=== PATIENT | female | born 1985 | race African-American/Black ===

== ENCOUNTER 2018-08-26 21:09 | Emergency (ER) | payer SELFPAY ==
[~2018-08-26] VITALS: Ht 170.2 cm; Wt 84.0 kg
[2018-08-27] MEDS ORDERED: BACITRACIN ZINC OINT UDPKT TOP ONE (00:30)
[2018-08-27] MEDS ORDERED: KETOROLAC 60MG/2ML VIAL IM ONE (00:30)
[2018-08-27] MEDS ORDERED: TETANUS, DIPHTHERIA, PERTUSSIS VAC/PF 0.5ML (>7YR OLD) IM ONE (00:30)
[2018-08-27 01:10] LABS: CLARITY URINE CLOUDY (CLEAR); COLOR URINE YELLOW (YELLOW); KETONES URINE TRACE (NEGATIVE); LEUKOCYTE ESTERASE URINE 1+ (NEGATIVE); NITRITE URINE POSITIVE (NEGATIVE); OCCULT BLOOD URINE 1+ (NEGATIVE); PH URINE 8.5 (4.5-8.0); PROTEIN URINE NEGATIVE (NEGATIVE); SPECIFIC GRAVITY URINE 1.025 (1.005-1.030)
[2018-08-27 01:54] VITALS: BP 128/67
== END 2018-08-27 01:55 | disposition home or self-care (01) ==
LOC: ER 21:09
DX: S00.81XA Abrasion of other part of head, initial encounter (principal); M54.89 Other dorsalgia; Z88.6 Allergy status to analgesic agent; V47.1XXA Car passenger injured in collision with fixed or stationary object in nontraffic accident, initial encounter; Y93.89 Activity, other specified; Y92.488 Other paved roadways as the place of occurrence of the external cause
CPT/HCPCS: 81003; 81025; 90471; 90715; 96372; 99283; J1885